=== PATIENT | male | born 1990 | race Caucasian/White ===

== ENCOUNTER 2017-10-04 18:15 | Emergency (ER) | payer SELFPAY ==
[2017-10-04] MEDS ORDERED: ACETAMINOPHEN 325 MG TABLET PO ONE (18:22)
[2017-10-04] MEDS ORDERED: PENICILLIN V POTASSIUM 500 MG TABLET PO ONE (20:19)
--- NOTE | 2017-10-04 20:21 | ER Document Report ---
HPI - HPI Patient complains to provider of: dental pain Pain Level: 5 Context: Patient is a 27-year-old male that comes emergency department for chief complaint of a dental infection, he states his tooth began to hurt a lot over the past 2 days on the bottom front, he states that yesterday he had a swollen pocket that he poked it with tweezers, he states it drained a lot of pus out in the swollen area resolved but he still has some redness at the gumline and some pain. He states he already had called the dentist for follow-up. He denies any other symptoms, takes no daily medications, denies any past medical history. - EENT EENT: REPORTS: Sore Throat Past Medical History - General Information source: Patient - Social History Smoking Status: Never Smoker Drug Abuse: None Lives with: Family Family History: Reviewed & Not Pertinent Patient has suicidal ideation: No Patient has homicidal ideation: No - Medical History Medical History: Negative Renal/ Medical History: Denies: Hx Peritoneal Dialysis Surgical Hx: Negative - Immunizations Immunizations up to date: Yes Hx Diphtheria, Pertussis, Tetanus Vaccination: Yes Vertical Provider Document - CONSTITUTIONAL General Appearance: WD/WN, No Apparent Distress - INFECTION CONTROL TRAVEL OUTSIDE OF THE [place] IN LAST 30 DAYS: No - HEENT HEENT: Atraumatic, Normocephalic Mouth Diagram: 1 - Erythematous area of the gumline, no induration, fluctuance, or other abnormality noted 2 - Dental caries - NECK Neck: Normal Inspection. negative: Lymphadenopathy-Left, Lymphadenopathy-Right - RESPIRATORY Respiratory: Breath Sounds Normal, No Respiratory Distress - CARDIOVASCULAR Cardiovascular: Regular Rate, Regular Rhythm - GI/ABDOMEN Gastrointestinal: Abdomen Soft, Abdomen Non-Tender - MUSCULOSKELETAL/EXTREMETIES Musculoskeletal/Extremeties: MAEW, FROM, Non-Tender - NEURO Level of Consciousness: Awake, Alert, Appropriate - DERM Integumentary: Warm, Dry, No Rash Course - Re-evaluation Re-evalutation: No induration, no fluctuant area, abscess has already been drained, there is an erythematous area of tenderness, will start on antibiotics, patient only has dental follow-up, discussed return precautions, patient states satisfaction and agreement - Vital Signs Vital signs: Temp Pulse Resp BP Pulse Ox 98.3 F 98 14 113/73 97 10/04/17 18:23 10/04/17 18:23 10/04/17 18:23 10/04/17 18:23 10/04/17 18:23 Discharge - Discharge Clinical Impression: Dental infection Condition: Stable Disposition: HOME, SELF-CARE Additional Instructions: You have already drained the oral abscess, take penicillin antibiotic for the infection. Follow-up with the dentist for additional management to prevent this from happening again. Return if you worsen including swelling of the face. Prescriptions: Penicillin V Potassium [Penicillin Vk 500 mg Tablet] 500 mg PO BID #20 tablet
[2017-10-04 20:40] VITALS: BP 111/61
== END 2017-10-04 20:38 | disposition home or self-care (01) ==
LOC: ER 18:15
DX: K04.7 Periapical abscess without sinus (principal); K08.89 Other specified disorders of teeth and supporting structures
CPT/HCPCS: 99282